=== PATIENT | female | born 1985 | race Caucasian/White ===

== ENCOUNTER → 2016-08-15 | Outpatient (CLI) | payer OTHER ==
[~2016-08-15] MED LIST: INSPMPHMLG SQ
[2016-08-15 17:16] LABS: ALT/SGPT 17 U/L (12-78); AST/SGOT 8 U/L (15-37); BLOOD UREA NITROGEN 11 mg/dl (7-18); BUN/CREATININE RATIO 16.5 (10-20); CALCIUM 9.2 mg/dl (8.5-10.1); CARBON DIOXIDE 30 mmol/L (21-32); CHLORIDE 103 mmol/L (98-107); CREATININE 0.66 mg/dl (0.60-1.20); GLUCOSE 96 mg/dl (70-99); HDL CHOLESTEROL 65 mg/dl; POTASSIUM 3.6 mmol/L (3.5-5.1); SODIUM 140 mmol/L (136-145); TRIGLYCERIDES 172 mg/dl (0-150); VERY LOW DENSITY LIPOPROT CALC 34 mg/dl
[2016-08-15 17:19] LABS: ESTIMATED AVERAGE GLUCOSE 226 mg/dl; HA1C FLAG Normal (Normal)
[2016-08-15 17:24] LABS: ALKALINE PHOSPHATASE 69 U/L (45-117); CHOLESTEROL 186 mg/dl (0-200); CHOLESTEROL/HDL RATIO 2.9; LDL CHOLESTEROL CALCULATED 87 mg/dl
[2016-08-15 17:48] LABS: URINE APPEARANCE CLOUDY (CLEAR); URINE BILIRUBIN NEG (NEG); URINE COLOR YELLOW; URINE EPITHELIAL CELL AUTO >30 /lpf (0-5); URINE NITRITE POS (NEG); URINE PH 7.5 (4.5-7.5); URINE SPECIFIC GRAVITY 1.019 (1.000-1.030); UROBILINOGEN NEG (NEG); ZZUR CULT IF INDIC CLEAN CATCH YES
[2016-08-15 17:49] LABS: MANUAL MICROSCOPIC REQUIRED? NO; REVIEW REQ? NO
[2016-08-15 18:23] LABS: RATIO 12.6 mcg/mg (0-30.0)
== END | disposition home or self-care (01) ==
LOC: C.LAB1850 16:03
PROVIDERS: ATTEND Internal Medicine Endocrinology, Diabetes & Metabolism
DX: R30.0 Dysuria (principal); E10.9 Type 1 diabetes mellitus without complications

== ENCOUNTER → 2016-11-14 | Outpatient (CLI) | payer OTHER ==
[2016-11-15 06:27] LABS: ESTIMATED AVERAGE GLUCOSE 229 mg/dl; HA1C FLAG Normal (Normal)
== END | disposition home or self-care (01) ==
LOC: C.LAB1850 15:40
PROVIDERS: ATTEND Internal Medicine Endocrinology, Diabetes & Metabolism
DX: E10.9 Type 1 diabetes mellitus without complications (principal); E55.9 Vitamin D deficiency, unspecified

== ENCOUNTER → 2016-11-23 | Outpatient (CLI) | payer OTHER | END | disposition home or self-care (01) | LOC: C.PAPS 12:15 | PROVIDERS: ATTEND Family Medicine | DX: Z12.4 Encounter for screening for malignant neoplasm of cervix (principal) ==

== ENCOUNTER → 2017-02-27 | Outpatient (CLI) | payer OTHER | END | disposition home or self-care (01) | LOC: C.LAB1850 13:43 | PROVIDERS: ATTEND Internal Medicine Endocrinology, Diabetes & Metabolism | DX: E10.9 Type 1 diabetes mellitus without complications (principal); E55.9 Vitamin D deficiency, unspecified ==

== ENCOUNTER 2017-05-17 10:40 | Emergency (ER) | payer OTHER ==
[~2017-05-17] VITALS: Ht 162.6 cm; Wt 68.9 kg
[2017-05-17 10:48] VITALS: TEMP 36.7; Ht 162.6 cm; Wt 68.9 kg
[2017-05-17] MEDS ORDERED: SODIUM CHLORIDE 0.9% 1000ML 1,000 ML IV STA (11:09)
[2017-05-17] MEDS ORDERED: OPTIRAY 320 IV PRN (11:15)
[2017-05-17 11:35] LABS: URINE APPEARANCE CLEAR (CLEAR); URINE BILIRUBIN NEG (NEG); URINE COLOR YELLOW; URINE NITRITE NEG (NEG); URINE PH 5.5 (4.5-7.5); URINE SPECIFIC GRAVITY 1.037 (1.000-1.030); UROBILINOGEN NEG (NEG); ZZUR CULT IF INDIC CLEAN CATCH NO
[2017-05-17 11:46] LABS: MANUAL MICROSCOPIC REQUIRED? NO; REVIEW REQ? NO
--- NOTE | 2017-05-17 12:09 | EMERGENCY ROOM VISIT NOTE ---
History First contact with patient: 10:52 Chief Complaint: FLANK PAIN Stated Complaint: KIDNEY PAIN, LOWER RIGHT BACK PAIN History of Present Illness The patient is a 31 year old female who presents to the Emergency Room with complaints of right flank pain that started two days ago. She states she was sick with fevers, vomiting, and diarrhea on Monday, and she started to have the pain at that time, she thought maybe she just slept wrong, but the pain has been persistent and worsening. She denies any fevers, chills, nausea, vomiting, or diarrhea since Monday. She describes the pain as a constant ache, occasionally more sharp, radiates to her lower abdomen, not worse with movements , somewhat improved with Motrin, 10/05. PMH of Type 1 DM on an insulin pump, states she has been doing well on the pump and her blood sugar levels have been good for her. She denies any headaches, neck pain or stiffness, chest pain, shortness of breath, dizziness or syncope, blood in the stool, dysuria, urinary frequency, hematuria, vaginal discharge, rash. Menstrual period was 3 weeks ago , she denies . Review of Systems A complete 10 point review of systems was reviewed with the patient with pertinent positives and negatives as per history of present illness. All else were negative. Past Medical/Surgical History Medical Problems: (1) delivery delivered (2) Diab Yolanda Wo Compl, Type I [Juvenile Type], Not Uncntrld (3) Mild preeclampsia Family History Diabetes mellitus Gallbladder disease Heart disease Hypertension Kidney disease Kidney stones Lung disease Social History Smoking Status: Never Smoker Marital Status: Housing Status: lives with family Occupation Status: employed Current/Historical Medications Scheduled Insulin Human Lispro (Insulin Humalog Pump ), 50-60 UNITS SQ DAILY Allergies No known allergies Physical Exam Vital Signs Date Time Temp Pulse Resp B/P (MAP) Pulse Ox O2 Delivery O2 Flow Rate FiO2 05/17/17 14:35 87 18 105/65 98 Room Air 05/17/17 14:10 92 18 05/17/17 13:40 88 15 98 05/17/17 13:10 86 13 93 05/17/17 13:02 69 18 139/62 98 Room Air 05/17/17 13:01 106/64 05/17/17 12:10 85 17 05/17/17 11:40 90 18 05/17/17 11:29 83 05/17/17 10:48 36.7 92 18 128/86 98 Room Air Physical Exam CONSTITUTIONAL: No acute distress. Mildly dehydrated, but well appearing and well nourished. Pleasant and cooperative. HEENT: Normocephalic, atraumatic. Pupils equal, round and reactive to light, EOMI. TMs normal. Pharynx normal. Tachycardia mucus membranes. NECK: Supple, full active range of motion without discomfort. RESPIRATORY: Clear to auscultation bilaterally with no wheezing, crackles, rhonchi or stridor. Equal expansion bilaterally. CARDIOVASCULAR: Regular rate and rhythm with no murmurs, rubs or gallops. Normal peripheral perfusion. No edema. GASTROINTESTINAL: Moderate tenderness to palpation in the right mid abdomen, no McBurney's point tenderness, no rebound tenderness or guarding. Abdomen is soft and nondistended. No palpable masses or HSM. Bowel sounds present in all quadrants. No CVA tenderness bilaterally. MUSCULOSKELETAL: Full range of motion of all joints without discomfort. INTEGUMENTARY: No rash or other significant dermatologic conditions noted. NEUROLOGIC: Alert and oriented X 4 with normal affect. No focal neurologic deficits noted. Medical Decision & Procedures ER Provider Diagnostic Interpretation: ABDOMEN AND PELVIS CT WITH IV CONTRAST CT DOSE: 298.18 mGy.cm HISTORY: Acute bilateral flank pain. eval ureteral stone, pyelo, appe, ovarian cyst TECHNIQUE: Multiaxial CT images of the abdomen and pelvis were performed following the use of intravenous contrast. A dose lowering technique was utilized adhering to the principles of ALARA. COMPARISON STUDY: CT 05/31/2015. FINDINGS: Lung bases are generally clear. No pneumatosis or pneumoperitoneum. Imaged inferior cardiac chambers are unremarkable. Liver, gallbladder, pancreas and adrenal glands are within normal limits. Indeterminate 4 mm low attenuating lesion of the central spleen is noted, suggesting a possible splenic cyst. Kidneys, ureters and urinary bladder are within normal limits. Uterus and adnexa are also within normal limits with probable follicular changes of the ovaries. No large adnexal mass lesions identified. Aorta is normal in course and caliber. No bulky adenopathy identified. No bowel obstruction or focal bowel wall thickening. The appendix appears normal within the right lower quadrant. Soft tissues are unremarkable. The bones appear intact. IMPRESSION: 1. No acute intra-abdominal or intrapelvic abnormality identified, specifically no renal calculi or obstructive uropathy. 2. Normal appendix. 3. No bowel obstruction or focal bowel wall thickening. Laboratory Results 05/17/17 11:00 Red Blood Count 4.68, Mean Corpuscular Volume 86.3, Mean Corpuscular Hemoglobin 28.6, Mean Corpuscular Hemoglobin Concent 33.2, Mean Platelet Volume 10.6, Neutrophils (%) (Auto) 78.0, Lymphocytes (%) (Auto) 13.0, Monocytes (%) (Auto) 8.3, Eosinophils (%) (Auto) 0.3, Basophils (%) (Auto) 0.1, Neutrophils # (Auto) 5.99, Lymphocytes # (Auto) 1.00, Monocytes # (Auto) 0.64, Eosinophils # (Auto) 0.02, Basophils # (Auto) 0.01 05/17/17 11:00 Test 05/17/17 11:00 White Blood Count 7.68 K/uL (4.8-10.8) Red Blood Count 4.68 M/uL (4.2-5.4) Hemoglobin 13.4 g/dL (12.0-16.0) Hematocrit 40.4 % (37-47) Mean Corpuscular Volume 86.3 fL (80-100) Mean Corpuscular Hemoglobin 28.6 pg (25-34) Mean Corpuscular Hemoglobin Concent 33.2 g/dl (32-36) Platelet Count 345 K/uL (130-400) Mean Platelet Volume 10.6 fL (7.4-10.4) Neutrophils (%) (Auto) 78.0 % Lymphocytes (%) (Auto) 13.0 % Monocytes (%) (Auto) 8.3 % Eosinophils (%) (Auto) 0.3 % Basophils (%) (Auto) 0.1 % Neutrophils # (Auto) 5.99 K/uL (1.4-6.5) Lymphocytes # (Auto) 1.00 K/uL (1.2-3.4) Monocytes # (Auto) 0.64 K/uL (0.11-0.59) Eosinophils # (Auto) 0.02 K/uL (0-0.5) Basophils # (Auto) 0.01 K/uL (0-0.2) RDW Standard Deviation 43.4 fL (36.4-46.3) RDW Coefficient of Variation 13.8 % (11.5-14.5) Immature Granulocyte % (Auto) 0.3 % Immature Granulocyte # (Auto) 0.02 K/uL (0.00-0.02) Urine Color YELLOW Urine Appearance CLEAR (CLEAR) Urine pH 5.5 (4.5-7.5) Urine Specific [place] 1.037 (1.000-1.030) Urine Protein NEG (NEG) Urine Glucose (UA) 3+ (NEG) Urine Ketones 1+ (NEG) Urine Occult Blood NEG (NEG) Urine Nitrite NEG (NEG) Urine Bilirubin NEG (NEG) Urine Urobilinogen NEG (NEG) Urine Leukocyte Esterase NEG (NEG) Urine Test NEG (NEG) Anion Gap 6.0 mmol/L (3-11) Est Creatinine Clear Calc Drug Dose 96.5 ml/min Estimated GFR () 112.1 Estimated GFR (Non- 96.7 BUN/Creatinine Ratio 16.8 (10-20) Calcium Level 8.3 mg/dl (8.5-10.1) Total Bilirubin 0.4 mg/dl (0.2-1) Direct Bilirubin < 0.1 mg/dl (0-0.2) Aspartate Amino Transf (AST/SGOT) 16 U/L (15-37) Alanine Aminotransferase (ALT/SGPT) 19 U/L (12-78) Alkaline Phosphatase 75 U/L (45-117) Total Protein 8.2 gm/dl (6.4-8.2) Albumin 3.9 gm/dl (3.4-5.0) Lipase 111 U/L (73-393) Medications Administered Medications (Trade) Dose Ordered Sig/Nikhil Route Start Time Stop Time Status Last Admin Dose Admin Sodium Chloride 1,000 ml @ 999 mls/hr Q1H1M STAT IV 05/17/17 11:09 05/17/17 12:09 DC 05/17/17 11:09 999 MLS/HR Ketorolac Tromethamine (Toradol Inj) 60 mg NOW STAT IM 05/17/17 13:20 05/17/17 13:22 DC 05/17/17 13:49 60 MG Medical Decision CC: Patient presenting with complaint of right flank/abdominal pain Interpretation of Labs: No leukocytosis, no anemia, hyperglycemia, no other significant electrolyte abnormalities, anion gap is closed, normal renal function, normal liver enzymes and lipase. UA shows large glucose and small ketones, no infection or blood. Urine is negative. Differential Diagnosis: Includes, but not limited to ureteral stone, UTI, pyelonephritis, appendicitis, ovarian cyst, gastroenteritis, gastroparesis, constipation, cholecystitis, cholelithiasis, pancreatitis, DKA, musculoskeletal pain, among others. Medication Reconciliation: I attest that I have personally reviewed the patient' s current medication list. Vital signs review: I reviewed the patient's vital signs and interpret them as follows: T: Afebrile; BP: Normotensive; HR: Within normal limits; RR: Within normal limits; Pulse Ox: Within normal limits on room air. Blood pressure screening: The patient was found to have normal blood pressure on screening and does not require follow-up for repeat blood pressure check. Summary: Patient was evaluated at bedside, history and physical exam performed. Patient alert and oriented, no acute distress, resting comfortably in the stretcher. There is no CVA tenderness on exam. She does have moderate tenderness to the right flank and mid abdomen with palpation. She appears to be mildly dehydrated. She reports that her pump has been functioning normally. Orders were placed at bedside for labs, UA and urine , IV fluids for hydration, CT abdomen/pelvis with IV contrast to evaluate for intra-abdominal pathology. Patient was offered something for her abdominal pain, she declines any pain medication at this time. Patient discussed with Dr. Farooq, who agrees with my assessment and plan. Labs reviewed as above, no acute abnormalities. No evidence of DKA. She is not . CT imaging unremarkable, no signs of obstructive ureteral stone, bowel obstruction, appendicitis. Patient reassessed multiple times throughout ED stay, she reports she is feeling well, her pain remains unchanged. I offered her Toradol, she agrees to take this, and had improved pain after receiving. She is also requesting something to eat, this was provided to her. She was updated on all results and plan for discharge, and was encouraged to follow closely with her PCP. She was also instructed on strict return precautions should her symptoms worsen , she verbalized understanding. Patient was discharged home in stable condition and ambulatory. Head Trauma GCS Score: 15 Medication Reconcilliation Current Medication List: was personally reviewed by me Blood Pressure Screening Patient's blood pressure: Normal blood pressure Impression Primary Impression: Right flank pain Departure Information Dispostion Home / Self-Care Condition GOOD Referrals Magdalena Rogers MD (PCP) Patient Instructions ED Flank Pain Uncertain Cause, My [facility] Additional Instructions You have been treated in the Emergency Department your flank/back pain. Laboratory results and imaging studies have ruled out any emergent causes for your symptoms which would warrant admission or surgery. For pain control, you can use the following [id number] medicines (if >12 yo): - Regular strength (325mg/tab) Tylenol (acetaminophen) 2 tabs every 4-6 hours as needed. Do not exceed 10 tablets in a 24 hour period. Avoid taking more than 3000 mg of Tylenol per day. This includes any other sources of acetaminophen you may take on a regular basis. - Regular strength (200 mg/tab) Advil (ibuprofen) 3 tabs every 6-8 6 hours as needed. Do not exceed a dose of 2400 mg per day. May try applying a heating pad to your area of pain for comfort. Drink plenty of fluids to stay well hydrated. As with any trip to the Emergency Department, you should follow-up with your Primary Care Provider from today's visit. Return to the emergency department for severe worsening abdominal or back pain, worsening nausea/vomiting, vomiting blood, blood in your stool or urine, fevers > 101.5, severe dizziness or passing out, or any other concerns. Work Instructions Return To Work: 1 day
[2017-05-17 12:23] LABS: BASO % 0.1 %; BASO ABS # 0.01 K/uL (0-0.2); COMPLETE YES; EOS % 0.3 %; HEMATOCRIT 40.4 % (37-47); IG% 0.3 %; MEAN CELL VOLUME 86.3 fL (80-100); MEAN CORPUSCULAR HEMOGLOBIN 28.6 pg (25-34); MEAN CORPUSCULAR HGB CONC 33.2 g/dl (32-36); MEAN PLATELET VOLUME 10.6 fL (7.4-10.4); MONO % 8.3 %; PLATELET COUNT 345 K/uL (130-400); RED BLOOD COUNT 4.68 M/uL (4.2-5.4); WHITE BLOOD COUNT 7.68 K/uL (4.8-10.8)
[2017-05-17 12:28] LABS: ALT/SGPT 19 U/L (12-78); BLOOD UREA NITROGEN 14 mg/dl (7-18); BUN/CREATININE RATIO 16.8 (10-20); CALCIUM 8.3 mg/dl (8.5-10.1); CARBON DIOXIDE 26 mmol/L (21-32); CHLORIDE 101 mmol/L (98-107); CREATININE 0.82 mg/dl (0.60-1.20); GLUCOSE 272 mg/dl (70-99); POTASSIUM 3.4 mmol/L (3.5-5.1); SODIUM 133 mmol/L (136-145)
[2017-05-17 12:31] LABS: ALKALINE PHOSPHATASE 75 U/L (45-117); AST/SGOT 16 U/L (15-37)
--- NOTE | 2017-05-17 13:08 | DIAGNOSTIC IMAGING REPORT ---
ABDOMEN AND PELVIS CT WITH IV CONTRAST CT DOSE: 298.18 mGy.cm HISTORY: Acute bilateral flank pain. eval ureteral stone, pyelo, appe, ovarian cyst TECHNIQUE: Multiaxial CT images of the abdomen and pelvis were performed following the use of intravenous contrast. A dose lowering technique was utilized adhering to the principles of ALARA. COMPARISON STUDY: CT 05/31/2015. FINDINGS: Lung bases are generally clear. No pneumatosis or pneumoperitoneum. Imaged inferior cardiac chambers are unremarkable. Liver, gallbladder, pancreas and adrenal glands are within normal limits. Indeterminate 4 mm low attenuating lesion of the central spleen is noted, suggesting a possible splenic cyst. Kidneys, ureters and urinary bladder are within normal limits. Uterus and adnexa are also within normal limits with probable follicular changes of the ovaries. No large adnexal mass lesions identified. Aorta is normal in course and caliber. No bulky adenopathy identified. No bowel obstruction or focal bowel wall thickening. The appendix appears normal within the right lower quadrant. Soft tissues are unremarkable. The bones appear intact. IMPRESSION: 1. No acute intra-abdominal or intrapelvic abnormality identified, specifically no renal calculi or obstructive uropathy. 2. Normal appendix. 3. No bowel obstruction or focal bowel wall thickening. Electronically signed by: Marcelo Mallory M.D. 05/17/2017 1:07 PM Dictated Date/Time: 05/17/2017 1:02 PM
[2017-05-17] MEDS ORDERED: KETOROLAC TROMETHAMINE 60 MG/2 ML VIAL IM STA (13:20)
[2017-05-17 14:35] VITALS: BP 105/65; PULSE 87; O2SAT 98
== END 2017-05-17 14:39 | disposition home or self-care (01) ==
LOC: C.EDB 10:42 → C.EDC 14:39
DX: R10.9 Unspecified abdominal pain (principal); E10.9 Type 1 diabetes mellitus without complications; Z96.41 Presence of insulin pump (external) (internal); Z98.891 History of uterine scar from previous surgery; Z83.3 Family history of diabetes mellitus; Z82.49 Family history of ischemic heart disease and other diseases of the circulatory system; Z84.1 Family history of disorders of kidney and ureter

== ENCOUNTER → 2017-12-18 | Outpatient (CLI) | payer OTHER ==
[2017-12-18 17:34] LABS: ALBUMIN 3.8 gm/dl (3.4-5.0); ALKALINE PHOSPHATASE 83 U/L (45-117); ALT/SGPT 18 U/L (12-78); AST/SGOT 9 U/L (15-37); BLOOD UREA NITROGEN 16 mg/dl (7-18); CALCIUM 8.9 mg/dl (8.5-10.1); CARBON DIOXIDE 29 mmol/L (21-32); CHOLESTEROL 209 mg/dl (0-200); CREATININE 0.83 mg/dl (0.60-1.20); GLUCOSE 335 mg/dl (70-99); LDL CHOLESTEROL CALCULATED 117 mg/dl; POTASSIUM 3.7 mmol/L (3.5-5.1); SODIUM 136 mmol/L (136-145); TOTAL PROTEIN 8.1 gm/dl (6.4-8.2)
[2017-12-19 06:32] LABS: HEMOGLOBIN A1C 10.7 % (4.5-5.6)
== END | disposition home or self-care (01) ==
LOC: C.LAB1850 15:28
PROVIDERS: ATTEND Internal Medicine Endocrinology, Diabetes & Metabolism
DX: E55.9 Vitamin D deficiency, unspecified (principal); E10.65 Type 1 diabetes mellitus with hyperglycemia

== ENCOUNTER 2020-08-25 05:22 | Inpatient (IN) ==
--- NOTE | 2020-08-04 14:21 | Communication Note ---
Patient follows with Dr. Roldan. Patient states that endocrine recommended to leave at anesthesia/OB discretion regarding if insulin pump to remain on or not perioperatively. She states she was told that if keeping on, recommendation to cut sensitivity/basal to approximately half one hour prior to c/s.
--- NOTE | 2020-08-04 15:05 | Anesthesiology Consultation ---
Date of Service August 04, 2020 Assessment & Plan (1) Encounter for pre-operative examination: Chart Review Chart Review: sales support manager initiated Krys Weston PA-C did speak with patient via telephone on 08/04/20- per communication note = "Patient follows with Dr. Roldan. Patient states that endocrine recommended to leave at anesthesia/OB discretion regarding if insulin pump to remain on or not perioperatively. She states she was told that if keeping on, recommendation to cut sensitivity/basal to approximately half one hour prior to c/s." Per nursing assessment 08/04/20, patient resides in [place] [place] close to [facility] [place]. Traveled to [facility] to visit parents. Wears mask in public. No known Covid infection in the past 90 days. No known Covid positive contacts or Covid related symptoms. Preop Covid testing scheduled 08/21/20= will await results. History Surgery Operation Date: 08/25/20 07:30 Proposed Procedures p Section in LD - Niall Drew MD s Post Tubal Ligation Labor and Deliv - Niall Drew MD Height/Weight Height: 5 ft 4 in Weight: 81.647 kg Allergies Allergy/AdvReac Type Severity Reaction Status Date / Time morphine Allergy Unknown HALLUCINATI Verified 08/04/20 13:50 ONS Medications Home Medications Medication Instructions Recorded Confirmed Last Taken PNV 153-FA 400 mcg-om3 35 mg-dha 2 tab PO DAILY tab 03/05/19 08/04/20 Unknown 25 mg-epa 5 mg-fish oil chew tablet Omnipod Dash 5 Pack Pod #30 ea NS 05/18/20 Unknown blood sugar diagnostic #50 ea 07/09/20 07/09/20 Unknown cholecalciferol (vitamin D3) 1,250 mcg PO WK 08/04/20 08/04/20 Unknown cyanocobalamin (vitamin B-12) 100 mcg PO DAILY 08/04/20 08/04/20 Unknown [Vitamin B-12] glucagon HCl 1 mg SUBCUT UD PRN 08/04/20 08/04/20 Unknown insulin lispro [Humalog U-100 100 - 120 unit SQ UD 08/04/20 08/04/20 Unknown Insulin] iron,carbonyl-vitamin C [Vitron-C] 2 tab PO DAILY 08/04/20 08/04/20 Unknown Past Medical History Medical History Anemia Diabetes type 1, controlled Nausea and vomiting after administration of anesthetic agent NAUSEA Past Family History Family History Father Hypertension Family history of colonic polyps Mother Benign neoplasm of brain Sister Hx of thyroidectomy Grandfather (Maternal) Benign neoplasm of brain Grandmother (Maternal) Benign neoplasm of brain Uncle Benign neoplasm of brain Other Family history of diabetes mellitus Past Surgical History Surgical History History of D&C Hx of section Social History Smoking Status: Former smoker tobacco type: cigarettes Smoking End Date: 4 YR AGO Hx Alcohol Use: No Hx Substance Use: No substance use type: does not use Testing Laboratory Results 07/30/20= WBC: 9.85 H/H: 10.7/33.9 PLATELETS: 243 SODIUM: 137 POTASSIUM: 4.2 CHLORIDE: 105 CO2: 22 BUN: 9 CREATININE: 0.7 GLUCOSE: 131 07/09/20= HGB A1C: 6.6 Electrocardiogram Date: 03/12/20 Findings: + NSR @ (75 bpm) Normal EKG. Compared to EKG from November 14, 2012nonspecific T wave abnormality has replaced inverted T waves in inferior leads, nonspecific T wave abnormality now evident in anterior leads per cardio.
--- NOTE | 2020-08-05 13:35 | History and Physical Report ---
DATE OF ADMISSION: 08/25/2020 HISTORY OF PRESENT ILLNESS: This is a 34-year-old , due date 08/30/2020 making her at 36 weeks and 3 days today. The patient had a prior section, wishes to have repeat and bilateral tubal ligation. COURSE: Has been unremarkable. LABORATORIES: Blood type A positive, antibody negative, rubella immune. PAST MEDICAL HISTORY: The patient is a diabetic type 1, on insulin, history of anxiety and preeclampsia. PAST SURGICAL HISTORY: History of prior section and D and C. SOCIAL HISTORY: The patient denies tobacco, drug or alcohol use. FAMILY HISTORY: Noncontributory. PHYSICAL EXAMINATION: GENERAL: Well-developed, well-nourished white female in no acute distress. HEART: S1, S2, regular rhythm and rate. LUNGS: Clear to auscultation bilaterally. ABDOMEN: Gravid. heart rate today is 140s. NST is category 1. EXTREMITIES: No cyanosis, clubbing or edema. ASSESSMENT AND PLAN: The patient is a 34-year-old 3, para 1, at 36+ weeks, prior section, history of type 1 diabetic, on insulin pump. The patient had a prior section, wishes to have repeat section. We have discussed risks of surgery with the patient including infection, bleeding, and damage to adjacent organs. The patient will see the admitting doctor on the day of surgery and sign consent.
[2020-08-25] MEDS ORDERED: LACTATED RINGER'S 1,000 ML IV SCH ×2 (05:30→11:30)
[2020-08-25] MEDS ORDERED: SODIUM CHLORIDE 0.9% 250 ML IV PRN (05:31)
[2020-08-25] MEDS ORDERED: CITRIC ACID/SODIUM CITRATE 15 ML UDC PO SCH (06:00)
[2020-08-25 06:12] LABS: Basophils # (auto) 0.01 K/uL (0-0.2); Basophils % (auto) 0.1 %; Eosinophils # (auto) 0.06 K/uL (0-0.5); Eosinophils % (auto) 0.9 %; Hematocrit (blood only) 35.8 % (37-47); Hemoglobin 11.8 g/dL (12.0-16.0); Immature Granulocytes # (auto) 0.02 K/uL (0.00-0.02); Immature Granulocytes % (auto) 0.3 %; Lymphocytes % (auto) 29.1 %; Mean Corpuscular Hemoglobin 28.2 pg (25-34); Mean Corpuscular Volume 85.6 fL (80-100); Mean Platelet Volume 11.7 fL (7.4-10.4); Monocytes % (auto) 10.2 %; Neutrophils # (auto) 4.09 K/uL (1.4-6.5); Neutrophils % (auto) 59.4 %; Platelet Count 194 K/uL (130-400); Red Blood Count 4.18 M/uL (4.2-5.4); White Blood Count 6.88 K/uL (4.8-10.8)
[2020-08-25 06:45] LABS: Albumin Level 2.5 gm/dl (3.4-5.0); BUN Creatinine Ratio 10.4 (10-20); Calcium 8.6 mg/dl (8.5-10.1); Creatinine Clr Calc Pharmacy 128.1 ml/min; Est GFR (African American) 136.2; Est GFR (Non-African American) 117.5; Potassium 3.4 mmol/L (3.5-5.1)
[2020-08-25 06:46] LABS: Albumin Globulin Ratio 0.6 (0.9-2); Bilirubin,Total 0.5 mg/dl (0.2-1); Globulin 4.2 gm/dl (2.5-4.0); Total Protein 6.7 gm/dl (6.4-8.2)
[2020-08-25] MEDS ORDERED: MoRPHine SULFATE PF 1 MG/ML 10 ML AMP/VIAL ONE (07:26)
[2020-08-25] MEDS ORDERED: MEPERIDINE HCL 25 MG/ML CARP/VIAL IV PRN (08:38)
[2020-08-25] MEDS ORDERED: NALOXONE HCL 0.08 MG in SYRINGE 1.8 ML IV PRN (08:38)
[2020-08-25] MEDS ORDERED: NALOXONE HCL 0.4 MG/1 ML VIAL/CARP IV PRN (08:38)
[2020-08-25] MEDS ORDERED: PROMETHAZINE HCL 12.5 MG in SODIUM CHLORIDE 0.9% 50 ML IV PRN (08:38)
[2020-08-25] MEDS ORDERED: LACTATED RINGER'S 500 ML IV PRN (08:38)
[2020-08-25] MEDS ORDERED: ONDANSETRON INJ 2 MG/ML 2 ML VIAL IV PRN (08:38)
[2020-08-25] MEDS ORDERED: NALOXONE HCL 1 MG in SODIUM CHLORIDE 0.9% 1000ML 1,000 ML IV PRN (08:38)
[2020-08-25] MEDS ORDERED: diphenhydrAMINE 50 MG/ML VIAL IV PRN (08:38)
[2020-08-25] MEDS ORDERED: HYDROmorphone INJ 0.5 MG/0.5 ML SYR IV PRN (08:38)
[2020-08-25] MEDS ORDERED: MoRPHine SULFATE PF 1 MG/ML 10 ML AMP/VIAL INT SPINAL ONE (08:38)
[2020-08-25] MEDS ORDERED: ePHEDrine sulfate 50 MG/ML AMP IV PRN (08:38)
[2020-08-25] MEDS ORDERED: METOCLOPRAMIDE HCL 10 MG in SODIUM CHLORIDE 0.9% 50 ML IV PRN (08:38)
[2020-08-25] MEDS ORDERED: OXYTOCIN 10 UNITS/ML VIAL ONE (08:40)
[2020-08-25] MEDS ORDERED: ePHEDrine sulfate 50 MG/ML AMP ONE (08:40)
[2020-08-25] MEDS ORDERED: ePHEDrine sulfate 50 MG/ML SYR ONE (08:41)
[2020-08-25] MEDS ORDERED: PHENYLEPHRINE 100MCG/ML 5ML SYR ONE (08:41)
[2020-08-25] MEDS ORDERED: SODIUM CHLORIDE 0.9% 1000ML 1,000 ML IV SCH (08:45)
[2020-08-25] MEDS ORDERED: DC INTRASPINAL MORPHINE SCH (08:45)
[2020-08-25] MEDS ORDERED: NO NARCOTICS OR SEDATIVES SCH (08:45)
--- NOTE | 2020-08-25 08:47 | Post Operative Brief Note ---
Immediate Post Op Note v1 Date of Surgery August 25, 2020 Pre & Post Diagnosis Operation Date: 08/25/20 07:30 <No data on this case meets the specified criteria> I identified the patient and participated in the time-out.: Yes Procedure Operation Date: 08/25/20 07:30 <No data on this case meets the specified criteria> Surgeon Niall Drew MD Tree Climber REJI Reynolds and REJI Arnett Estimated Blood Loss 600 Findings Consistent with Post-Op Diagnosis
[2020-08-25] MEDS ORDERED: Nursing to Pharmacy Communication SCH (09:30)
[2020-08-25] MEDS: KETOROLAC 30 MG/ML VIAL IV PRN (09:39)
[2020-08-25] MEDS ORDERED: GLUCOSE 40% GEL 15 GM TUBE PO PRN (09:45)
[2020-08-25] MEDS ORDERED: GLUCOSE 10 TABS/TUBE PO PRN (09:45)
[2020-08-25] MEDS ORDERED: CARBOHYDRATES FOR HYPOGLYCEMIA PO PRN (09:45)
[2020-08-25] MEDS ORDERED: GLUCAGON FOR INJ 1 MG VIAL IM PRN (09:45)
[2020-08-25] MEDS ORDERED: DEXTROSE 50% 50 ML SYRINGE IV PRN (09:45)
[2020-08-25] MEDS ORDERED: KETOROLAC 30 MG/ML VIAL IV PRN (10:47)
[2020-08-25] MEDS ORDERED: SENNA 8.6 MG TAB PO PRN (10:47)
[2020-08-25] MEDS ORDERED: GLUCAGON HCL SQ PRN (10:47)
[2020-08-25] MEDS ORDERED: DIPHTHERIA/TETANUS/PERTUSSIS 0.5 ML SYR/VIAL IM ONE (10:47)
[2020-08-25] MEDS ORDERED: MAGNESIUM HYDROXIDE SUSP 30 ML UDC PO PRN (10:47)
[2020-08-25] MEDS ORDERED: HYDROCORTISONE ACETATE 25 MG SUPP PR PRN (10:47)
[2020-08-25] MEDS ORDERED: BENZOCAINE 20% AER SPR 82.5 GM CAN EXT PRN (10:47)
[2020-08-25] MEDS ORDERED: SUPERCREAM 0.870% 15 GM JAR EXT PRN (10:47)
[2020-08-25] MEDS ORDERED: NON-FORMULARY MEDICATION (Pnv No.153-Fa-Om3-Dha-Epa-Fish [Prenatal Gummies] 400 mcg-35 mg- PO SCH (10:47)
[2020-08-25] MEDS ORDERED: NON-FORMULARY MEDICATION (Iron,Carbonyl-Vitamin C [Vitron-C] 65 mg iron- 125 mg Tablet,Del PO SCH (10:47)
[2020-08-25] MEDS ORDERED: OXYTOCIN 30 UNITS in LACTATED RINGER'S 1,000 ML IV SCH (11:00)
[2020-08-25] MEDS ORDERED: INSULIN HUMAN LISPRO (humaLOG) 100 UNITS/ML VIAL SC PRN (11:30)
[2020-08-25] MEDS: SIMETHICONE 80 MG CHEW PO SCH ×3 (13:12→20:39)
[2020-08-25] MEDS: CYANOCOBALAMIN (VITAMIN B-12) 100 MCG TABLET PO SCH ×2 (14:55→20:39)
--- NOTE | 2020-08-25 14:56 | Anesthesiology Progress Note ---
Date of Service August 25, 2020 Anesthesia Post Procedure Vital Signs Vital Signs: Temp Pulse Pulse Resp BP BP Pulse Ox 08/25/20 14:46 16 100 08/25/20 14:45 86 16 134/88 100 08/25/20 13:44 82 16 136/87 97 08/25/20 12:45 92 H 18 143/92 H 100 08/25/20 12:15 96 H 18 149/91 H 99 08/25/20 11:45 36.8 C 88 20 155/91 H 99 08/25/20 11:20 85 98 08/25/20 11:19 89 133/82 08/25/20 11:15 86 97 08/25/20 11:10 98 08/25/20 11:09 88 134/84 08/25/20 11:05 91 H 97 08/25/20 11:00 94 H 94 08/25/20 10:59 88 157/101 H 08/25/20 10:55 82 97 08/25/20 10:50 88 97 08/25/20 10:49 85 149/95 H 08/25/20 10:45 87 96 08/25/20 10:40 93 H 96 08/25/20 10:39 95 H 148/103 H 08/25/20 10:35 93 H 98 08/25/20 10:30 85 96 08/25/20 10:29 85 158/88 H 08/25/20 10:25 85 97 08/25/20 10:20 90 155/72 H 97 08/25/20 10:15 85 97 08/25/20 10:10 81 121/74 96 08/25/20 10:05 90 96 08/25/20 10:00 86 96 08/25/20 09:59 90 129/85 08/25/20 09:55 89 95 08/25/20 09:50 90 95 08/25/20 09:49 89 157/80 H 08/25/20 09:45 86 95 08/25/20 09:40 88 96 08/25/20 09:39 87 146/86 H 08/25/20 09:35 88 95 08/25/20 09:30 89 96 08/25/20 09:29 91 H 144/76 H 94 08/25/20 09:25 86 96 08/25/20 09:23 81 94 08/25/20 09:20 84 95 08/25/20 09:19 89 139/84 08/25/20 09:14 86 100 08/25/20 09:09 88 144/80 H 100 08/25/20 07:09 80 138/88 08/25/20 05:43 86 143/97 H 08/25/20 05:29 37.0 C 18 Pain Intensity Lower Abdomen: Pain Intensity: 1 Transfer of Care Handoff Completed per policy Notes Mental Status: alert / awake / arousable and participated in evaluation Patient Amnestic to Procedure: Yes Nausea / Vomiting: adequately controlled Pain: adequately controlled Airway Patency, RR, SpO2: stable & adequate BP & HR: stable & adequate Hydration State: stable & adequate Neuraxial Anesthesia: was administered and sensory block is resolving Anesthetic Complications: no major complications apparent
[2020-08-25] MEDS: DOCUSATE SODIUM 100 MG CAP PO SCH (20:39)
--- NOTE | 2020-08-25 21:34 | Operative Report (OR) ---
DATE OF OPERATION: 08/25/2020 PREOPERATIVE DIAGNOSIS: Elective repeat section and voluntary sterilization procedure. POSTOPERATIVE DIAGNOSIS: Elective repeat section and voluntary sterilization procedure. SURGEON: Niall Drew MD JUNIOR HIGH MATH TEACHER: REJI Reynolds and REJI Sood. ANESTHESIA: Spinal. CLINICAL HISTORY: The patient is a 34-year-old female, para 1-0-1-1 at 39 weeks and 2 days, admitted for an elective repeat section and bilateral tubal ligation. Consents were signed. Timeout was called prior to the start of the procedure and antibiotics were given preop. DESCRIPTION OF PROCEDURE: Under satisfactory spinal anesthesia, the patient was prepped and draped in usual sterile fashion. A low Pfannenstiel incision through a prior scar was then made, carrying the incision down through the layers of the abdomen in successive layers without difficulty. Upon entering into the peritoneal cavity, a bladder blade was then entered with sharp dissection with Metzenbaum scissors. Bladder blade was entered. A low segment transverse incision over the lower uterine incision was made. The incision was nicked. Amniotic sac was noted to be clear. The incision was widened in the AP diameter. The baby was found to be in the vertex presentation with the aid of fundal pressure. The delivery was accomplished without difficulty delivering a live female, Apgars were 9 and 10. There was delayed cord clamping for 1 minute. weight was 8 pounds 7 ounces. Cord blood was then obtained. Placenta delivered spontaneously and intact. Uterus was then exteriorized. Ring forceps were then placed on both angles in the inferior margin. Another ring was then used to dilate the cervix. Clean lap was then used to clean all clots and debris. Uterus was then closed using a single layer closure with 0 Vicryl suture in a continuous interlocking fashion. Lower uterine segment was inspected, no active bleeding was noted. Tubes, ovaries bilaterally were found to be within normal limits. Filshie clips were then used, 2 clips were then serially applied to both the right and then the left side without difficulty. Uterus was then placed back into the normal anatomical position. The contents of the pelvic and abdominal cavity were then irrigated to clear. Lower uterine inspection revealed no active bleeding. The initial sponge, needle, and instrument count were found to be correct. The fascia was then reapproximated from both ends using 0 Vicryl suture in a continuous fashion. Subcuticular layer was then irrigated. Bleeders were cauterized. The subcuticular layer was closed with a 2-0 plain suture and the skin was then reapproximated with 4-0 Monocryl suture. Steri-Strips were then applied. Clear urine was 300 mL. Estimated blood loss 600 mL. Total fluid 1 liter. The final sponge, needle and instrument count were found to be correct. Dressing applied. The patient was then placed supine on a stretcher. She was taken to recovery room in stable condition. I attest to the content of the Intraoperative Record and any orders documented therein. Any exception s are noted below.
[2020-08-26] MEDS: KETOROLAC 30 MG/ML VIAL IV PRN (01:43)
[2020-08-26] MEDS ORDERED: ONDANSETRON INJ 2 MG/ML 2 ML VIAL IV PRN (02:39)
[2020-08-26] MEDS ORDERED: diphenhydrAMINE Capsule 25 MG CAP PO PRN (02:39)
[2020-08-26] MEDS ORDERED: PROMETHAZINE HCL 25 MG in SODIUM CHLORIDE 0.9% 50 ML IV PRN (02:39)
[2020-08-26] MEDS ORDERED: MEPERIDINE HCL 50 MG/ML CARP IV PRN (02:39)
[2020-08-26] MEDS ORDERED: diphenhydrAMINE 50 MG/ML VIAL IV PRN (02:39)
[2020-08-26] MEDS ORDERED: oxyCODONE/ACETAMINOPHEN 5mg/325mg TAB PO PRN (02:39)
[2020-08-26 06:29] LABS: Basophils # (auto) 0.01 K/uL (0-0.2); Basophils % (auto) 0.1 %; Eosinophils # (auto) 0.02 K/uL (0-0.5); Eosinophils % (auto) 0.1 %; Hematocrit (blood only) 30.4 % (37-47); Hemoglobin 10.1 g/dL (12.0-16.0); Immature Granulocytes # (auto) 0.03 K/uL (0.00-0.02); Immature Granulocytes % (auto) 0.2 %; Lymphocytes # (auto) 1.48 K/uL (1.2-3.4); Lymphocytes % (auto) 9.1 %; Mean Corpuscular Hemoglobin 28.1 pg (25-34); Mean Corpuscular Hgb Conc 33.2 g/dL (32-36); Mean Corpuscular Volume 84.7 fL (80-100); Mean Platelet Volume 11.7 fL (7.4-10.4); Monocytes # (auto) 1.14 K/uL (0.11-0.59); Neutrophils # (auto) 13.57 K/uL (1.4-6.5); Neutrophils % (auto) 83.5 %; Platelet Count 217 K/uL (130-400); RDW Standard Deviation 59.3 fL (36.4-46.3); Red Blood Count 3.59 M/uL (4.2-5.4); White Blood Count 16.25 K/uL (4.8-10.8)
--- NOTE | 2020-08-26 08:18 | Obstetrical Progress Note ---
Date of Service August 26, 2020 Assessment & Plan Admission and Anticipated Discharge Date Admission Date: August 25, 2020 Subjective Patient is seen and examined. She feels well, no complaints. Pain is under control with oral meds. Ambulating without dizziness Voiding without difficulty Tolerating regular diet with out N&V Flatus + BM neg Bleeding is minimal No fever/ chills/ CP/ SOB/ N&V/ Leg pain Breast feeding without problems Vital Signs Temp Pulse Resp BP Pulse Ox 08/26/20 07:51 36.8 C 81 20 133/83 99 08/26/20 03:00 37.0 C 86 16 108/70 99 08/26/20 02:30 20 99 08/26/20 01:29 20 100 08/26/20 01:00 20 99 08/25/20 23:25 37.1 C 96 H 20 115/72 98 08/25/20 23:17 18 97 08/25/20 22:46 18 96 08/25/20 21:32 18 98 08/25/20 21:03 18 98 08/25/20 20:39 18 99 Lab Results 08/25/20 08/25/20 08/25/20 Range/Units 05:48 05:48 05:48 WBC 6.88 (4.8-10.8) K/uL RBC 4.18 L (4.2-5.4) M/uL Hgb 11.8 L (12.0-16.0) g/dL Hct 35.8 L (37-47) % MCV 85.6 (80-100) fL MCH 28.2 (25-34) pg MCHC 33.0 (32-36) g/dL RDW Std Deviation 60.0 H (36.4-46.3) fL RDW Coeff of Felicia 19.0 H (11.5-14.5) % Plt Count 194 (130-400) K/uL MPV 11.7 H (7.4-10.4) fL Immature Gran % (Auto) 0.3 % Neut % (Auto) 59.4 % Lymph % (Auto) 29.1 % Long % (Auto) 10.2 % Eos % (Auto) 0.9 % Baso % (Auto) 0.1 % Neut # (Auto) 4.09 (1.4-6.5) K/uL Lymph # (Auto) 2.00 (1.2-3.4) K/uL Long # (Auto) 0.70 H (0.11-0.59) K/uL Eos # (Auto) 0.06 (0-0.5) K/uL Baso # (Auto) 0.01 (0-0.2) K/uL Immature Gran # (Auto) 0.02 (0.00-0.02) K/uL Sodium 139 (136-145) mmol/L Potassium 3.4 L (3.5-5.1) mmol/L Chloride 108 H (98-107) mmol/L Carbon Dioxide 24 (21-32) mmol/L Anion Gap 7.0 (3-11) BUN 7 (7-18) mg/dl Creatinine 0.65 (0.6-1.2) mg/dl Est Cr Clr Drug Dosing 128.1 ml/min Est GFR ( Amer) 136.2 Est GFR (Non-Af Amer) 117.5 BUN/Creatinine Ratio 10.4 (10-20) Glucose 89 (70-99) mg/dl POC Glucose (70-99) mg/dl Calcium 8.6 (8.5-10.1) mg/dl Total Bilirubin 0.5 (0.2-1) mg/dl AST 10 L (15-37) U/L ALT 10 L (12-78) U/L Alkaline Phosphatase 145 H (45-117) U/L Total Protein 6.7 (6.4-8.2) gm/dl Albumin 2.5 L (3.4-5.0) gm/dl Globulin 4.2 H (2.5-4.0) gm/dl Albumin/Globulin Ratio 0.6 L (0.9-2) Blood Type A Positive Antibody Screen NEGATIVE Crossmatch See Detail 08/25/20 08/26/20 08/26/20 Range/Units 06:20 06:07 07:56 WBC 16.25 H (4.8-10.8) K/uL RBC 3.59 L (4.2-5.4) M/uL Hgb 10.1 L (12.0-16.0) g/dL Hct 30.4 L (37-47) % MCV 84.7 (80-100) fL MCH 28.1 (25-34) pg MCHC 33.2 (32-36) g/dL RDW Std Deviation 59.3 H (36.4-46.3) fL RDW Coeff of Felicia 19.0 H (11.5-14.5) % Plt Count 217 (130-400) K/uL MPV 11.7 H (7.4-10.4) fL Immature Gran % (Auto) 0.2 % Neut % (Auto) 83.5 % Lymph % (Auto) 9.1 % Long % (Auto) 7.0 % Eos % (Auto) 0.1 % Baso % (Auto) 0.1 % Neut # (Auto) 13.57 H (1.4-6.5) K/uL Lymph # (Auto) 1.48 (1.2-3.4) K/uL Long # (Auto) 1.14 H (0.11-0.59) K/uL Eos # (Auto) 0.02 (0-0.5) K/uL Baso # (Auto) 0.01 (0-0.2) K/uL Immature Gran # (Auto) 0.03 H (0.00-0.02) K/uL Sodium (136-145) mmol/L Potassium (3.5-5.1) mmol/L Chloride (98-107) mmol/L Carbon Dioxide (21-32) mmol/L Anion Gap (3-11) BUN (7-18) mg/dl Creatinine (0.6-1.2) mg/dl Est Cr Clr Drug Dosing ml/min Est GFR ( Amer) Est GFR (Non-Af Amer) BUN/Creatinine Ratio (10-20) Glucose (70-99) mg/dl POC Glucose 77 89 (70-99) mg/dl Calcium (8.5-10.1) mg/dl Total Bilirubin (0.2-1) mg/dl AST (15-37) U/L ALT (12-78) U/L Alkaline Phosphatase (45-117) U/L Total Protein (6.4-8.2) gm/dl Albumin (3.4-5.0) gm/dl Globulin (2.5-4.0) gm/dl Albumin/Globulin Ratio (0.9-2) Blood Type Antibody Screen Crossmatch PE: General: Alert, orientedx3, NAD CVS: S1S2 RRR Lungs; CTAB Abd: soft, NT, ND, BS+, fundus firm, below Umbilicus Incision: Clean, dry, intact Perineum intact, Lochia rubra minimal Ext; NT, no edema AP: 34 yo s/p C Section, pod# 1, Type I DM, on insulin pump VSS Afebrile doing well Continue routine postop care Encourage ambulation, PO intake All questions were answered Results & Data ([facility]) Vital Signs (Past 12 Hours) Vital Signs Temp Pulse Resp BP Pulse Ox 08/26/20 07:51 36.8 C 81 20 133/83 99 08/26/20 03:00 37.0 C 86 16 108/70 99 08/26/20 02:30 20 99 08/26/20 01:29 20 100 08/26/20 01:00 20 99 08/25/20 23:25 37.1 C 96 H 20 115/72 98 08/25/20 23:17 18 97 08/25/20 22:46 18 96 08/25/20 21:32 18 98 08/25/20 21:03 18 98 08/25/20 20:39 18 99
[2020-08-26] MEDS ORDERED: FERROUS SULFATE 325 MG TAB PO SCH (09:00)
[2020-08-26] MEDS: PRENATAL VITAMIN 1 TAB PO SCH (09:02)
[2020-08-26] MEDS: SIMETHICONE 80 MG CHEW PO SCH ×4 (09:03→21:10)
[2020-08-26] MEDS: IBUPROFEN 600 MG TAB PO PRN ×4 (09:04→21:10)
[2020-08-26] MEDS: DOCUSATE SODIUM 100 MG CAP PO SCH ×2 (09:05→21:10)
[2020-08-26] MEDS: FERROUS SULFATE 325 MG TAB PO SCH (09:07)
[2020-08-26] MEDS ORDERED: bisacodyL 5 MG TABEC PO SCH (20:00)
[2020-08-26] MEDS ORDERED: CYANOCOBALAMIN (VITAMIN B-12) 100 MCG TABLET PO SCH (21:00)
[2020-08-27] MEDS: IBUPROFEN 600 MG TAB PO PRN ×3 (04:00→12:36)
[2020-08-27 06:30] LABS: Hematocrit (blood only) 29.5 % (37-47); Hemoglobin 9.7 g/dL (12.0-16.0)
[2020-08-27] MEDS: PRENATAL VITAMIN 1 TAB PO SCH (08:46)
[2020-08-27] MEDS: SIMETHICONE 80 MG CHEW PO SCH ×2 (08:46→12:36)
[2020-08-27] MEDS: DOCUSATE SODIUM 100 MG CAP PO SCH (08:47)
[2020-08-27] MEDS: FERROUS SULFATE 325 MG TAB PO SCH (08:47)
[2020-08-27] MEDS ORDERED: bisacodyL 10 MG SUPP PR PRN (08:50)
--- NOTE | 2020-08-27 10:14 | Surgery Progress Note ---
Date of Service August 27, 2020 Assessment & Plan Admission and Anticipated Discharge Date Admission Date: August 25, 2020 Subjective POD32 doing well plans for d/c passing gas tolerating diet OOB Physical Exam Constitutional: WD/WN, vitals as above well developed and comfortable abdomen soft and non-tender incision c/d/i no edema neg [facility] for d/c home Results & Data ([facility]) Vital Signs (Past 12 Hours) Vital Signs Temp Pulse Resp BP Pulse Ox 08/27/20 07:48 37.2 C 83 18 134/84 98 08/26/20 23:45 36.6 C 89 18 139/82 Laboratory Results 08/25/20 08/25/20 08/25/20 05:48 05:48 05:48 WBC 6.88 RBC 4.18 L Hgb 11.8 L Hct 35.8 L MCV 85.6 MCH 28.2 MCHC 33.0 RDW Std Deviation 60.0 H RDW Coeff of Felicia 19.0 H Plt Count 194 MPV 11.7 H Immature Gran % (Auto) 0.3 Neut % (Auto) 59.4 Lymph % (Auto) 29.1 Castro % (Auto) 10.2 Eos % (Auto) 0.9 Baso % (Auto) 0.1 Neut # (Auto) 4.09 Lymph # (Auto) 2.00 Castro # (Auto) 0.70 H Eos # (Auto) 0.06 Baso # (Auto) 0.01 Immature Gran # (Auto) 0.02 Sodium 139 Potassium 3.4 L Chloride 108 H Carbon Dioxide 24 Anion Gap 7.0 BUN 7 Creatinine 0.65 Est Cr Clr Drug Dosing 128.1 Est GFR ( Amer) 136.2 Est GFR (Non-Af Amer) 117.5 BUN/Creatinine Ratio 10.4 Glucose 89 POC Glucose Calcium 8.6 Total Bilirubin 0.5 AST 10 L ALT 10 L Alkaline Phosphatase 145 H Total Protein 6.7 Albumin 2.5 L Globulin 4.2 H Albumin/Globulin Ratio 0.6 L Blood Type A Positive Antibody Screen NEGATIVE Crossmatch See Detail 08/25/20 08/26/20 08/26/20 06:20 06:07 07:56 WBC 16.25 H RBC 3.59 L Hgb 10.1 L Hct 30.4 L MCV 84.7 MCH 28.1 MCHC 33.2 RDW Std Deviation 59.3 H RDW Coeff of Felicia 19.0 H Plt Count 217 MPV 11.7 H Immature Gran % (Auto) 0.2 Neut % (Auto) 83.5 Lymph % (Auto) 9.1 Castro % (Auto) 7.0 Eos % (Auto) 0.1 Baso % (Auto) 0.1 Neut # (Auto) 13.57 H Lymph # (Auto) 1.48 Castro # (Auto) 1.14 H Eos # (Auto) 0.02 Baso # (Auto) 0.01 Immature Gran # (Auto) 0.03 H Sodium Potassium Chloride Carbon Dioxide Anion Gap BUN Creatinine Est Cr Clr Drug Dosing Est GFR ( Amer) Est GFR (Non-Af Amer) BUN/Creatinine Ratio Glucose POC Glucose 77 89 Calcium Total Bilirubin AST ALT Alkaline Phosphatase Total Protein Albumin Globulin Albumin/Globulin Ratio Blood Type Antibody Screen Crossmatch 08/27/20 05:50 WBC RBC Hgb 9.7 L Hct 29.5 L MCV MCH MCHC RDW Std Deviation RDW Coeff of Felicia Plt Count MPV Immature Gran % (Auto) Neut % (Auto) Lymph % (Auto) Castro % (Auto) Eos % (Auto) Baso % (Auto) Neut # (Auto) Lymph # (Auto) Castro # (Auto) Eos # (Auto) Baso # (Auto) Immature Gran # (Auto) Sodium Potassium Chloride Carbon Dioxide Anion Gap BUN Creatinine Est Cr Clr Drug Dosing Est GFR ( Amer) Est GFR (Non-Af Amer) BUN/Creatinine Ratio Glucose POC Glucose Calcium Total Bilirubin AST ALT Alkaline Phosphatase Total Protein Albumin Globulin Albumin/Globulin Ratio Blood Type Antibody Screen Crossmatch
[2020-08-30] MEDS ORDERED: ERGOCALCIFEROL 50,000 UNITS 1250 MCG CAP PO SCH (09:00)
--- NOTE | 2020-09-07 14:37 | Discharge Summary (DS) ---
REASON FOR ADMISSION AND HOSPITAL COURSE: The patient is a 34-year-old female, para 1-0-1-1 at 39 weeks and 2 days, admitted for elective repeat section and voluntary sterilization procedure. The patient underwent section with spinal anesthesia. She delivered a live female, Apgars were 9 and 10. weight was 8 pounds 7 ounces. Hospital course was unremarkable. The patient was discharged home on 08/27/2020 in stable condition. Home going instructions were given. Condition on discharge is stable. Regular diet on discharge. Medications include Percocet and Motrin. Followup will be in the office in 1 week for an incision check.
== END 2020-08-27 13:05 | disposition home or self-care (01) | DRG 783 ==
LOC: 4S1 05:22 → EDSTATUS 07:30 → 4S2 12:12
PROC: M.PPTLD (2020-08-25 07:30)